=== PATIENT | male | born 1965 | race Caucasian/White ===

== ENCOUNTER → 2017-12-22 13:14 | Emergency (ER) | payer MEDICARE ==
[~2017-12-22 13:14] MED LIST: Labetalol IV* 5 MG/ML 20 ML VIAL IV PUSH ONE
--- NOTE | 2017-12-22 14:02 | ED ---
Hypertension - HPI Summary HPI Summary: This pt is a 52 y/o male presenting to [facility] referred by Dr. Dunlap for hypertension today. Pt reports his PCP had prescribed him 80 mg of Losartan and was doing well. Later he noticed his blood pressure was not controlled so his PCP increased his Losartan dose to 160 mg two weeks ago. Today he went to see Dr. 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 At their office pt was noted to have an elevated blood pressure and sent him to the ED. Pt currently c/ o a slight headache, described as pressure on bilateral temples. Denies nausea, vomiting, chest pain, SOB. 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 Pt states at onset of SC pt was using cocaine, since then he denies cocaine use. Denies tobacco use. He does drink alcohol occasionally and rare use of marijuana (2-3 times per month). - History of Current Complaint Chief Complaint: EDHypertension Stated Complaint: HIGH BP-SENT BY [employer] TECHNICAL ADVISOR Time Seen by Provider: 12/22/17 13:47 Hx Obtained From: Patient Onset/Duration: Started Days Ago, Still Present Timing: Lasting Days Aggravating Factor(s): Nothing Alleviating Factor(s): Nothing Associated Signs & Symptoms: Headaches, Other: - NEGATIVE: nausea, vomiting, chest pain, SOB, fever - Allergies/Home Medications Allergies/Adverse Reactions: Allergies Allergy/AdvReac Type Severity Reaction Status Date / Time No Known Allergies Allergy Verified 12/22/17 13:31 Home Medications: Home Medications Carvedilol TAB* [Coreg TAB*] 25 mg PO BID 12/22/17 [History Confirmed 12/22/17] Dulaglutide (NF) [Trulicity (NF)] 1.5 mg SUBCUT WEEKLY 12/22/17 [History Confirmed 12/22/17] Insulin LISPRO* [HumaLOG*] 0 units SUBCUT DIRECTED 12/22/17 [History Confirmed 12/22/17] L.acidoph,Paracasei, B.lactis [Probiotic] 1 cap PO DAILY 12/22/17 [History Confirmed 12/22/17] Polyethylene Glycol 3350* [Miralax*] 17 gm PO DAILY PRN 12/22/17 [History Confirmed 12/22/17] Ranitidine TAB (NF) [Zantac TAB (NF)] 150 mg PO BID 12/22/17 [History Confirmed 12/22/17] Sertraline* [Zoloft*] 100 mg PO DAILY 12/22/17 [History Confirmed 12/22/17] Valsartan TAB* [Diovan TAB*] 80 mg PO DAILY 12/22/17 [History Confirmed 12/22/17 ] clonazePAM TAB(*) [Klonopin TAB(*)] 0.5 mg PO TID PRN 12/22/17 [History Confirmed 12/22/17] PMH/Surg Hx/FS Hx/Imm Hx Endocrine/Hematology History: Reports: Hx Diabetes Denies: Hx Systemic Lupus Erythematosus Cardiovascular History: Reports: Hx Angina, Hx Coronary Artery Disease, Hx Hypercholesterolemia, Hx Hypertension, Hx Myocardial Infarction Denies: Hx Congestive Heart Failure, Hx Valvular Heart Disease Respiratory History: Denies: Hx Asthma, Hx Chronic Obstructive Pulmonary Disease (COPD) History: Denies: Hx Dialysis, Hx Renal Disease Musculoskeletal History: Denies: Hx Rheumatoid Arthritis - Cancer History Hx Chemotherapy: No Infectious Disease History: No Infectious Disease History: Denies: Traveled Outside the [place] in Last 30 Days - Family History Known Family History: Positive: Cardiac Disease - Mother and Father with MIs, Hypertension - Father, Respiratory Disease - Mother with COPD - Social History Alcohol Use: None Substance Use Type: Reports: Marijuana Smoking Status (MU): Former Smoker Review of Systems Negative: Fever, Chills Cardiovascular: Other - hypertension Negative: Chest Pain Negative: Shortness Of Breath Negative: Vomiting, Nausea Positive: Headache All Other Systems Reviewed And Are Negative: Yes Physical Exam - Summary Physical Exam Summary: VITAL SIGNS: Reviewed. GENERAL: Patient is a well-developed and nourished male who is lying comfortable in the stretcher. Patient is not in any acute respiratory distress. HEAD AND FACE: No signs of trauma. No ecchymosis, hematomas or skull depressions. No sinus tenderness. EYES: PERRLA, EOMI x 2, No injected conjunctiva, no nystagmus. EARS: Hearing grossly intact. Ear canals and tympanic membranes are within normal limits. MOUTH: Oropharynx within normal limits. NECK: Supple, trachea is midline, no adenopathy, no JVD, no carotid bruit, no c- spine tenderness, neck with full ROM. CHEST: Symmetric, no tenderness at palpation LUNGS: Clear to auscultation bilaterally. No wheezing or crackles. CVS: Regular rate and rhythm, S1 and S2 present, no murmurs or gallops appreciated. ABDOMEN: Soft, non-tender. No signs of distention. No rebound, no guarding, and no masses palpated. Bowel sounds are normal. EXTREMITIES: FROM in all major joints, no edema, no cyanosis or clubbing. NEURO: Alert and oriented x 3. No acute neurological deficits. Speech is normal and follows commands. SKIN: Dry and warm Triage Information Reviewed: Yes Vital Signs On Initial Exam: Initial Vitals Temp Pulse Resp BP Pulse Ox 97.8 F 91 18 201/120 98 12/22/17 13:28 12/22/17 13:28 12/22/17 13:28 12/22/17 13:28 12/22/17 13:28 Vital Signs Reviewed: Yes Diagnostics - Vital Signs Vital Signs Temp Pulse Resp BP Pulse Ox 12/22/17 13:28 97.8 F 91 18 201/120 98 - Laboratory Result Diagrams: 12/22/17 14:07 12/22/17 14:08 Lab Statement: Any lab studies that have been ordered have been reviewed, and results considered in the medical decision making process. - Radiology Chest XR Xray Interpretation: No Acute Changes - IMPRESSION: No active cardiopulmonary disease is noted. Dr. Campbell has reviewed this report. Radiology Interpretation Completed By: Radiologist - EKG 14:02 Cardiac Rate: NL - at 89 bpm EKG Rhythm: Sinus Rhythm EKG Interpretation: No ST elevations. Re-Evaluation - Re-Evaluation First Eval Re-Evaluation Time: 17:48 Comment: I discussed the lab and XR results with the pt. He will be discharged home. Hypertension Course/Dx - Course Assessment/Plan: This pt is a 52 y/o male presenting to [facility] referred by Dr. Dunlap for hypertension today. Pt reports his PCP had prescribed him 80 mg of Losartan and was doing well. Later he noticed his blood pressure was not controlled so his PCP increased his Losartan dose to 160 mg two weeks ago. Today he went to see Dr. 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 At their office pt was noted to have an elevated blood pressure and sent him to the ED. Pt currently c/o a slight headache, described as pressure on bilateral temples. Denies nausea, vomiting, chest pain, SOB. PMHx includes SC (about 10 years ago) with 3 cardiac stents and 1 stent in renal artery. Pt states at onset of SC pt was using cocaine, since then he denies cocaine use. Denies tobacco use. He does drink alcohol occasionally and rare use of marijuana (2-3 times per month). Forget to take all medications as indicated. Blood work without any significant abnormality except for glucose of 265. Chest x-ray impression: No active cardiopulmonary disease. Since the patient is hypertensive the patient was given labetalol 20 mg IV. Patient was given a second dose of labetalol and right now the blood pressure is 131/98. The patient is feeling better and he has no other symptoms, therefore the patient will be discharged home with follow-up from primary care physician. Patient is hemodynamically stable, alert and oriented 3. Patient will follow-up with primary care physician or letter stamping machine operator for better control of the blood pressure. He was also advised to adhere and take medications as indicated. The patient understands and agrees. - Diagnoses Provider Diagnoses: Uncontrolled hypertension Discharge - Sign-Out/Discharge Documenting (check all that apply): Patient Departure - discharge home - Discharge Plan Condition: Stable Disposition: HOME Patient Education Materials: Hypertension (ED) Referrals: Charlotte Ordonez MD [Primary Care Provider] - Additional Instructions: FOLLOW UP WITH YOUR PRIMARY CARE PROVIDER WITHIN ONE WEEK FOR HIGH BLOOD PRESSURE TODAY. RETURN TO THE ED FOR ANY NEW OR WORSENING SYMPTOMS. - Billing Disposition and Condition Condition: STABLE Disposition: Home - Attestation Statements Document Initiated by Scribe: Yes Documenting Scribe: Shruti Amezquita Provider For Whom Mayuri is Documenting (Include Credential): Perry Campbell MD Scribe Attestation: Shruti Bateman scribed for Perry Campbell MD on 12/23/17 at 0841. Scribe Documentation Reviewed: Yes Provider Attestation: The documentation as recorded by the Shruti paez accurately reflects the service I personally performed and the decisions made by me, Perry Campbell MD
--- OUTSIDE RECORDS SUMMARY | 2017-12-22 14:05 | XMS REPORT ---
:1965 External Reference #:[id number] Author Organization [employer] Address [address] [facility] [place] [address] Phone [phone] Care Team Providers Name Role Phone Charlotte Ordonez MD Primary Care Physician Unavailable Payers Type Date Identification Numbers Payment Provider Subscriber Medicare Primary Effective: Policy Number: Medicare Aaron Cox 2010 [id number] PayID: [id number] [facility] [address] [place] [id number] Problems Date Description Provider Status Onset: 05/20/2016 Essential hypertension Annalise Ramirez M.D. Onset: 07/06/2011 Electrocardiogram abnormal Annalise Ramirez M.D. Onset: 07/06/2011 Hyperlipidemia Annalise Ramirez M.D. Onset: 07/06/2011 Type 2 diabetes mellitus Annalise Ramirez M.D. Onset: 07/06/2011 Patient post percutaneous Edward Dunlap Active transluminal coronary angioplasty M.DCarli Onset: 07/06/2011 Old myocardial infarction Annalise Ramirez M.D. Onset: 07/06/2011 Benign essential hypertension Annalise Ramirez M.D. Onset: 07/06/2011 Coronary arteriosclerosis Annalise Ramirez M.D. Family History Date Family Member(s) Problem(s) Comments Father due to NE () - age 56 yrs Father due to Hypertension () Mother Chronic Obstructive Pulmonary Disease (COPD) Mother due to NE () - in her 60's Mother Coronary Artery Disease (CAD) Mother NE Siblings 1 1 sister - no known CAD several half siblings - CAD, HTN, CABG Paternal Grandfather due to NE () - age 50's Paternal Grandmother due to Cancer () Maternal Grandmother due to NE () - age 83yrs DM Paternal Uncles NE 2 uncles with NE age 50's Social History Type Date Description Comments Marital Status Single Lives With Girlfriend Occupation Disabled Cigarette Use Quit 20 Years Ago ETOH Use Occasionally consumes alcohol 3-4 per month Recreational Drug Use Denies Drug Use Smoking Patient is a former smoker Daily Caffeine Consumes on average 8oz of soda per day Exercise Type/Frequency Exercises sporadically Currently Active Patient is currently sexually active Allergies, Adverse Reactions, Alerts Date Description Reaction Status Severity Comments 07/06/2011 NKDA active 06/11/2009 NKDA inactive Medications Medication Date Status Form Strength Qnty SIG Indications Ordering Provider Valsartan 12/01/ Active Tablets 160mg 30tabs one po qd Deantaevita Dunlap M.D. Carvedilol 06/11/ Active Tablets 25mg 60tabs 1 po bid Mery 2009 Charlotte M.D. Humalog / Active Solution 100Unit/ML 1vial via Unknown 0000 insulin pump Diltiazem CD / Active Caps ER 180mg 1 by Unknown 0000 24HR mouth every day Ibuprofen / Active Kit 800mg 3x a day Unknown Comfort Pac 0000 as needed Trulicity / Active Solution 1.5mg/0.5M inject sc Unknown 0000 Pen-Inject L weekly Clonazepam / Active Tablets 1mg 1/2 tab Unknown 0000 by mouth tid Polyethylene / Active Packet 3350NF as needed Unknown Glycol 3350 0000 Probiotic-10 / Active Capsules 1 cap by Unknown 0000 mouth daily Sertraline HCL / Active Tablets 100mg 1 by Unknown 0000 mouth every day Ranitidine HCL / Active Tablets 150mg take one Unknown 0000 tablet by mouth daily Escitalopram 07/06/ Hx Tablets 30mg 90tabs 1 po qd Qutaybeh Oxalate 2013 - SCarli 05/15/ Mike Dunlap M.D. Viagra 08/13/ Hx Tablets 50mg 30tabs 1 tab po 302.72 Mery 2009 - prn , Radomir, M.D. 2012 Norvasc 08/12/ Hx Tablets 5mg 30tabs 1 po qd Qutaybeh 2009 S. 05/15/ Germán, 2016 M.D. Clarinex 08/03/ Hx Tablets 5mg 30tabs 1 po qd Mery 2009 - , Radomir, .D. 2012 Metformin ER 07/13/ Hx 500mg 90unit 1 po tid 250.00 Mery 2009 s , Radomir, .D. 2010 Actos 07/13/ Hx Tablets 30mg 90tabs 1 po qd 250.00 Mery 2009 - , Radomir, .D. 2013 Crestor 07/13/ Hx Tablets 20mg 30tabs 1 po qd 250.00 Mery 2009 - , Radomir, .D. 2016 Lisinopril 06/11/ Hx Tablets 40mg 30tabs 1 po qd Mery 2009 , Radomir, .D. 2013 HCTZ 06/11/ Hx 25mg. 30unit 1 po qd Mery 2009 s , Radomir, .D. 2013 Glipizide 06/11/ Hx Tablets 10mg 1 po bid Mery 2009 - , Radomir, .D. 2010 Metformin HCL 06/11/ Hx Tablets 1000mg 60tabs 1 po bid Mery 2009 - , Radomir, .D. 2009 Sertraline HCL 06/11/ Hx Tablets 100mg 30tabs 2 PO qd Hectoranoaleksandr 2009 - , Radomir, M.D. 2010 Buspirone HCL 06/11/ Hx Tablets 30mg 1 PO bid Mery 2009 - , Radomir, .D. 2010 Gabapentin 06/11/ Hx Tablets 600mg 90tabs 1 po qd Mery 2009 - , Radomir, M.D. 2011 Asa 06/11/ Hx 81mg 100uni 1 po qd Mery 2009 - ts , Radomir, 06/11/ M.D. 2010 Nitroquick 06/11/ Hx Tablets 0.4mg 30tabs 1 s/l prn Qutaybeh 2009 - Sub chest S. 05/15/ pain, q 5 Maghaydah, 2017 min. up M.D. to 3 tabs [id number] 06/11/ Hx Capsules 500-50mg 180cap 1 po bid 250.00 Mery 2009 - s , Gavinoombuddy, 07/13/ M.D. 2009 723.1 414.01 Veramyst - Hx Suspension 27.5mcg/[place] 2 sprays Unknown 08/12/2009 each nostril bid Metformin HCL - Hx Tablets 500mg 1 po daily 25 Unknown 11/30/2017 0. 00 Lexapro - Hx Tablets 20mg 30 1 1/2 po qd Unknown 07/06/2012 ta bs Januvia - Hx Tablets 100mg 90 1 po qd Unknown 07/06/2012 ta bs Salsalate - Hx Tablets 500mg 54 1 po four Unknown 07/06/2012 0t times a day` ab s Bupropion HCL XL - Hx Tablets ER 300mg 90 1 po qd Unknown 05/15/2016 24HR ta bs Perforomist - Hx Nebulizer 20mcg/2ML 18 1 treatment Unknown 07/06/2012 0u bid ni ts Budesonide - Hx Suspension 0.25mg/2ML 18 bid via Unknown 07/06/2012 0u nebulizer ni ts Cyclobenzaprine - Hx Tablets 10mg 30 one po tid Unknown HCL 07/06/2012 ta prn spasm bs Invega - Hx Tablets ER 3mg Daily Unknown 07/06/2012 24HR Lisinopril/Hydroch - Hx Tablets 20-25mg 1 po qd Unknown lorothiazide 05/15/2016 Abilify - Hx Tablets 10mg 1 po qd Unknown 05/15/2016 Spiriva Handihaler - Hx Capsules 18mcg 1m 1 inhalation Unknown 05/15/2016 on po qam th Dulera - Hx Aerosol 100-5mcg/Act 1m 2 puff bid Unknown 05/15/2016 on Proair HFA - Hx Aerosol 108(90Base) 1u 2 puffs po Unknown 05/15/2016 mcg/Act ni q4h prn ts Levemir - Hx Solution 100Unit/ML 6p 45 units am, Unknown 05/15/2016 en 60 units pm s Simvastatin - Hx Tablets 10mg take 1 Unknown 11/30/2017 tablet by mouth daily Valsartan - Hx Tablets 80mg 1 by mouth Unknown 12/01/2017 every day Vital Signs Date Vital Result Comment 12/01/2017 Height 72 inches 6'0" Weight 263.00 lb w/ shoes Heart Rate 82 /min BP Systolic Sitting 170 mmHg Lue Larg Cuff BP Diastolic Sitting 116 mmHg Lue Larg Cuff BP Systolic Standing 185 mmHg Home Unit BP Diastolic Standing 120 mmHg Home Unit BMI (Body Mass Index) 35.7 kg/m2 Ejection Fraction 40-45% echo 06/10/16 05/20/2016 Height 72 inches 6'0" Weight 265.50 lb with shoes Heart Rate 88 /min BP Systolic Sitting 186 mmHg LA reg cuff BP Diastolic Sitting 110 mmHg LA reg cuff BMI (Body Mass Index) 36.0 kg/m2 Ejection Fraction 40% - 45% echo 06/27/12 07/06/2012 Height 72 inches 6'0" Weight 251.00 lb Heart Rate 68 /min BP Systolic Sitting 124 mmHg BP Diastolic Sitting 90 mmHg Respiratory Rate 16 /min BMI (Body Mass Index) 34.0 kg/m2 07/06/2011 Height 72 inches 6'0" Weight 278.00 lb Heart Rate 77 /min BP Systolic 148 mmHg BP Diastolic 96 mmHg BMI (Body Mass Index) 37.7 kg/m2 06/11/2010 Weight 271.00 lb Heart Rate 80 /min BP Systolic Sitting 136 mmHg BP Diastolic Sitting 72 mmHg 10/22/2009 Weight 259.00 lb Heart Rate 65 /min BP Systolic Sitting 100 mmHg BP Diastolic Sitting 78 mmHg BP Systolic Standing 110 mmHg BP Diastolic Standing 78 mmHg Respiratory Rate 16 /min 08/13/2009 Weight 259.00 lb Heart Rate 80 /min BP Systolic 140 mmHg BP Diastolic 100 mmHg 08/12/2009 Height 73 inches 6'1" Weight 260.00 lb Heart Rate 72 /min BP Systolic 150 mmHg BP Diastolic 100 mmHg Respiratory Rate 18 /min BMI (Body Mass Index) 34.3 kg/m2 07/13/2009 Weight 263.00 lb Heart Rate 64 /min BP Systolic Sitting 122 mmHg BP Diastolic Sitting 88 mmHg 06/11/2009 Height 73 inches 6'1" Weight 265.75 lb Heart Rate 78 /min BP Systolic Sitting 120 mmHg BP Diastolic Sitting 84 mmHg BMI (Body Mass Index) 35.1 kg/m2 Results Test Date Test Result H/L Range Note Laboratory test finding 07/13/2009 Oly Savage JEN (SEE NOTE) 1, 2 Laboratory test finding 06/22/2009 C Reactive Protein High 6.1 mg/L < 7.48 3 Sensit Urine Microalbumin 06/22/2009 Microalbumin (MG/L) 123.0 mg/L Random Urine Creatinine 113.55 mg/dL Felipe Alb/Creatinine Ratio 108.3 UG/MG High Less Than 30 4 C Peptide 06/22/2009 C-Peptide ng/mL 7.3 ng/mL 0.9-4.3 C-Peptide pmol/L 2433 pmol/L 297-1419 5 Laboratory test finding 06/22/2009 Homocysteine 11 umol/L () 6 Lipid Profile (Trig/Chol/HDL) 06/22/2009 Triglyceride 220 mg/dL High 40- 200 Cholesterol 265 mg/dL High Less Than 200 7 High Density Lipoprotein 33 mg/dL Low 40-60 8 Cholesterol/HDL Ratio 8.03 AVERAGE High 1-4.97 Low Density Lipoprotein 188 mg/dL High Less Than 100 9 Laboratory test finding 06/22/2009 C Reactive Protein 0.7 mg/dL High Less Than 0.5 Hemoglobin A1c 8.4 % High Less Than 6.0 10 Lactic Acid 1.7 mmol/L High 0.5-1.6 Comp Metabolic Panel 06/22/2009 Sodium 133 mmol/L Low 135-145 Potassium 4.5 mmol/L 3.5-5.0 Chloride 104 mmol/L 101-111 Co2 (Carbon Dioxide) 22.0 mmol/L 22-32 Anion Gap 7.0 mmol/L 2-11 11 Glucose 298 mg/dL High 70-100 12 BUN 20 mg/dL 6-24 Creatinine 1.05 mg/dL 0.50-1.40 One Over Creatinine 0.90 BUN/Creatinine Ratio 19.0 8-20 Calcium 9.6 mg/dL 8.1-9.9 13 Total Protein 7.8 GM/DL 6.2-8.1 Albumin 4.4 GM/DL 3.6-5.4 Globulin 3.4 GM/DL 2-4 Albumin/Globulin Ratio 1.3 1-3 Bilirubin Total 0.5 mg/dL 0.4-1.5 14 Alkaline Phosphatase 91 U/L 39-117 Alt (SGPT) 61 U/L 17-63 Ast (Sgot) 49 U/L High 12-42 eGFR Non- 82.7 > 60 eGFR 100.1 > 60 15 CBC With Electronic Diff 06/22/2009 White Blood Count 5.5 CUMM 4.8-10.8 Red Cell Count 4.95 CUMM 4.6-6.2 Hemoglobin 15.0 g/dL 14.0-18.0 Hematocrit 44 % 42-52 Mean Corpuscular Volume 89 um3 80-94 Mean Corpuscular Hemoglob 30 pg 27-31 Mean Corpuscular HGB Cone 34 g/dL 32-36 Redcell Distribution WDTH 14 % 10.5-15 Platelet Count 173 CUMM 150-450 Mean Platelet Volume 8.4 um3 7.4-10.4 Gran % 66.3 % 38-83 Lymph % 26.9 % 25-47 Mononuclear % 4.5 % 1-9 Eosinophil % 2.0 % 0-6 Basophil % 0.3 % 0-2 Abs Lymphs 1.5 1.0-4.8 Abs Mononuclear 0.2 0-0.8 Absolute Neutrophil Count 3.6 1.5-7.7 Abs Eosinophils 0.1 0-0.6 Abs Basophils 0 0-0.2 1 1132. 2 TEST RESULT RETURNED FROM REFERENCE LABORATORY AND HARDCOPY SENT TO PHYSICIAN(S) OFFICE. 3 Less Than 1.0......Low Risk of Cardiovascular Disease 1.0-3.0............Medium Risk (<2 Fold Increase) Greater Than 3.0...High Risk (Approximately 2-Fold Increase) The above guidelines are referenced in "Markers of Inflammation and Cardiovascular Disease: Application to Clinical and Public Health Practice." A Statement for Health Professionals from the Centers for Disease Control and Prevention and the [place] [employer]. (Reference: Circulation 2003 107:499-511) SERUM LEVELS OF HIGH SENSITIVITY C-REACTIVE PROTEIN MEASURED BY THE KJ SHAHIDA LXi 725 SYSTEM SHOULD NOT BE INTERPRETTED ABSOLUTE EVIDENCE OF THE PRESENCE OR ABSENCE OF DISEASE. A HIGH SENSITIVITY CRP VALUE SHOULD BE USED IN CONJUNCTION WITH OTHER PERTINENT CLINICAL AND DIAGNOSTIC INFORMATION. 4 MICROALBUMINURIA IN A RANDOM SAMPLE IS DEFINED : MICROALBUMIN/CREATININE RATIO OF 30-299 ug/mg. . 5 Test Performed by: [facility] Dpt of Lab Med and Pathology [address] [place] [address] Illuminating Engineer: Michael Garnett III, M.D. 6 -- REFERENCE VALUE -- <=13 (Fasting) Test Performed by: [facility] Dpt of Lab Med and Pathology [address] [place] [address] Illuminating Engineer: Michael Garnett III, M.D. 7 CHOLESTEROL INTERPRETATION: Desirable: Less than 200 MG/DL Borderline-High Risk: 200-239 MG/DL High-Risk: 240 MG/DL and over 8 HDL INTERPRETATION: Undesirable: High Risk: Less than 40 MG/DL Desirable: Low Risk: Greater than 60 MG/DL 9 LDL INTERPRETATION: Low Risk Optimal Level: LDL Less than 100 MG/DL Near or Above Optimal: LDL 100-129 MG/DL Borderline High Risk: LDL 130-159 MG/DL High Risk: LDL 160-189 MG/DL Very High Risk: LDL Greater than 189 MG/DL 10 THERAPEUTIC TARGET FOR THE TREATMENT OF DIABETES MELLITUS PATIENTS IS <7% HBA1C, AND IN SELECTIVE PATIENTS <6.0%. PLEASE REFER TO [place] DIAB[employer] ASSOCIATION DIABETIC CARE GUIDELINES FOR FURTHER INFORMATION. 11 Anion gap measurement may be of limited value in the presence of any alkalosis, especially in a combined acid base disorder. . 12 Note change in reference range as of 11/01/07. The change was based on recommendations from the [place] [employer]. 13 Please note change in reference range effective 07 . 14 A metabolite of Naproxen, O-desmethylnaproxen, has been shown to interfere with the [place] method for measuring total bilirubin. Samples from patients who have taken Naproxen have shown spurious elevation in total bilirubin levels. 15 Because ethnic data is not always readily available, this report includes an eGFR for both -Americans and non- Americans. The National Kidney Disease Education Program (NKDEP) does not endorse the use of the MDRD equation for patients that are not between the ages of 18 and 70, are , have extremes of body size, muscle mass, or nutritional status, or are non- or non-. According to the National Kidney Foundation, irrespective of diagnosis, the stage of the disease is based on the level of kidney function: Stage Description GFR(mL/min/1.73 m(2)) 1 Kidney damage with normal or decreased GFR 90 2 Kidney damage with mild decrease in GFR 60-89 3 Moderate decrease in GFR 30-59 4 Severe decrease in GFR 15-29 5 Kidney failure <15 (or dialysis) Procedures Date CPT Code Description Status 12/01/2017 02688 EKG Tracing & Interpretation Completed 06/15/2016 83708 Treadmill Interp/Report Only Completed 06/15/2016 99143 Stress Test Supervsn W/Out I/R Completed 06/10/2016 89890 ECHO Transthoracic, Real-Time 2D With Doppler And Color Completed Flow 05/20/2016 79929 EKG Tracing & Interpretation Completed 07/06/2012 77238 EKG Tracing & Interpretation Completed 06/26/2012 78119 ECHO Transthoracic, Real-Time 2D With Doppler And Color Completed Flow 07/06/2011 46992 EKG Tracing & Interpretation Completed 02/10/2011 82008 Stress Test Supervsn W/Out I/R Completed 02/10/2011 35753 Treadmill Interp/Report Only Completed 02/01/2011 42611 ECHO Transthoracic, Real-Time 2D With Doppler And Color Completed Flow 06/11/2010 44623 EKG Tracing & Interpretation Completed 12/14/2009 67189 Treadmill Interp/Report Only Completed 12/14/2009 76993 Stress Test Supervsn W/Out I/R Completed 10/22/2009 25839 EKG Tracing & Interpretation Completed 10/12/2009 52082 ECHO Transthoracic, Real-Time 2D With Doppler And Color Completed Flow 08/12/2009 19598 EKG Tracing & Interpretation Completed 06/11/2009 29801 EKG Tracing & Interpretation Completed Encounters Type Date Location Provider CPT E/M Dx Office Visit 05/20/2016 9:00a [facility] Edward Nassar [address]644 I25.10 Christa Dunlap I10 I25.2 Z98.61 E78.4 R06.02 I44.4 Office Visit 07/06/2012 10:40a [facility] Deantayb S. Aaron, [address]004 414.01 M.D. 401.1 412 V45.82 250.00 272.4 Office Visit 07/06/2011 10:00a [facility] Deantayb S. Sevenyd, [address]404 414.01 M.D. 401.1 412 V45.82 250.00 272.4 794.31 425.9 Office Visit 02/10/2011 2:51p [facility] Deantayb S. Aaron, [address]005 794.31 M.D. 412 414.01 401.1 786.50 786.05 V45.82 Office Visit 06/11/2010 3:00p [facility] Qutayb S. Aaron, 54480 414.01 M.D. 412 250.00 272.4 V45.82 Office Visit 10/22/2009 2:20p [facility], [address] 401.1 M.D. 414.01 412 Office Visit 08/26/2009 9:15a [facility] [address] 847.0 Patient Transport Orderly M.D. 723.1 Office Visit 08/13/2009 1:00p DO Not Use Patient Transport Orderly AT [facility], [address] 302.72 [place] M.D. 401.1 250.00 272.4 414.01 412 721.0 723.1 Office Visit 08/12/2009 9[facility]40a [facility], [address] 401.1 M.D. 250.00 272.4 414.01 412 V45.82 Office Visit 07/23/2009 1:00p [facility], [address] 721.0 Patient Transport Orderly M.D. 723.1 Office Visit 07/13/2009 8:40a DO Not Use Patient Transport Orderly AT [facility], [address] 250.00 [place] M.D. 401.1 272.4 414.01 412 309.0 477.9 723.1 Office Visit 06/11/2009 9:00a DO Not Use Patient Transport Orderly AT 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 at [facility]12/08/2017 9:00 am - Nurse Visit cc at [facility]12/22/2017 9 :00 am - [place] ECHO Schedule at [facility]12/06/2017 9:30 am - Fransisco Adame MD at [facility] Aavypmptnea42/21/2018 - Edward Dunlap M.D.I25.10 [facility] [place] coronary artery w/o ang pctrsFollow up:one yr ov with meI10 Essential (primary) hypertensionFollow up:one week BP check qclckD95.2 Old myocardial havppzxvyoV93.61 Coronary angioplasty qjbfeuO43.4 Other utxhfeggtyxrtdR22.9 Cardiomyopathy, unspecifiedFollow up:one month ASSISTANT PROFESSOR OF SPANISH ov to discuss echo and HTNI71.9 Aortic aneurysm of unspecified site, without ruptureNew Orders:AcbcwkglzetnogW15.33 Obstructive sleep apnea (adult) ( pediatric)
[2017-12-22 14:20] LABS: ABS Basophils 0.1 10^3/ul (0-0.2); ABS Eosinophils 0.1 10^3/ul (0-0.6); ABS Lymphocytes 1.8 10^3/ul (1.0-4.8); ABS Monocytes 0.3 10^3/ul (0-0.8); ABS Neutrophils 3.2 10^3/ul (1.5-7.7); ABS Nucleated RBC 0 10^3/ul; Hematocrit 45 % (42-52); Hemoglobin 15.8 g/dl (14.0-18.0); Lymphocyte % 32.5 % (25-47); Mean Corpuscular HGB Conc 35 g/dl (31-36); Mean Corpuscular Hemoglobin 31 pg (27-31); Mean Corpuscular Volume 90 fL (80-94); Mean Platelet Volume 8.5 um3 (7.4-10.4); Nucleated Red Blood Cells % 0.1; Platelet Count 156 10^3/ul (150-450); Red Blood Count 5.07 10^6/ul (4.00-5.40); Red Cell Distribution Width 14 % (10.5-15); White Blood Count 5.5 10^3/ul (3.5-10.8)
[2017-12-22 14:39] LABS: EGFR Non-African American 92.9 (>60)
--- NOTE | 2017-12-22 15:18 | RAD ---
Indication: Hypertension. 2 views of the chest including dual energy PA views demonstrate no mediastinal shift. Heart is of normal size and configuration. Lung ann demonstrate no pleural fluid, pneumonia or pneumothorax. When compared to previous exam of June 16, 2009 no significant change is noted. IMPRESSION: No active cardiopulmonary disease is noted.
[2017-12-22 18:37] VITALS: BP 142/100
== END | disposition home or self-care (01) ==
LOC: ED 13:14
DX: I10 Essential (primary) hypertension (principal); I25.2 Old myocardial infarction; E11.9 Type 2 diabetes mellitus without complications; Z87.891 Personal history of nicotine dependence
CPT/HCPCS: 36415; 71046; 80053; 84443; 85025; 93005; 96374; 96375; 99283

== ENCOUNTER 2018-07-11 07:07 | Emergency (ER) | payer MEDICARE ==
--- NOTE | 2018-07-11 07:33 | UC ---
UC General HPI - HPI Summary HPI Summary: Patient has poor dentition at baseline with several broken teeth. HE anticipates most if not all of his teeth will be pulled at some point. About 3- 4 days ago he noted pain in upper right area of teeth. The soonest the dentist could get in to see him was 5/6, which he assumes they will pull it. NO fevers. No nausea. Tolerating PO. Pain is bearable. Sugars are at there baseline high which is about 250. He takes nearly 200 units/day. Meds; Reviewed - History of Current Complaint Chief Complaint: UCDentalProblem Stated Complaint: DENTAL Time Seen by Provider: 07/11/18 07:22 Pain Intensity: 4 - Allergy/Home Medications Allergies/Adverse Reactions: Allergies Allergy/AdvReac Type Severity Reaction Status Date / Time No Known Allergies Allergy Verified 07/11/18 07:17 PMH/Surg Hx/FS Hx/Imm Hx Endocrine History: Diabetes Cardiovascular History: Hypertension GI/ History: Gastroesophageal Reflux - Surgical History Surgical History: Yes Surgery Procedure, Year, and Place: Colonoscopy, Cardiac Cath - Family History Known Family History: Positive: Cardiac Disease - Mother and Father with MIs, Hypertension - Father, Respiratory Disease - Mother with COPD - Social History Alcohol Use: None Alcohol Amount: 1x per month Substance Use Type: None Substance Use Comment - Amount & Last Used: the 2-3x per month Smoking Status (MU): Former Smoker When Did the Patient Quit Smoking/Using Tobacco: Review of Systems All Other Systems Reviewed And Are Negative: Yes Skin: Positive: Negative Physical Exam Triage Information Reviewed: Yes Appearance: Well-Appearing Vital Signs: Initial Vital Signs Temp 97.6 F 07/11/18 07:15 Pulse 79 07/11/18 07:15 Resp 18 07/11/18 07:15 BP 151/93 07/11/18 07:15 Pulse Ox 100 07/11/18 07:15 ENT: Positive: Normal ENT inspection Dental: Positive: Other: - poor dentition with several broken teeth - adentulous on top left. Top right - surrouding upper mid molar - mildly edematous and erythematous, pain with palpation. No drainage Neck: Positive: Supple, Nontender Respiratory: Positive: Normal breath sounds Cardiovascular: Positive: RRR, Other: - soft 2/6 systolic murmur Course/Dx - Course Course Of Treatment: This is a 52 yr old with PMHx of HTN and poorly controlled DM on insulin pump who presents with right upper molar dental pain Assessment Suspect dental abscess in setting of poor dentition and poorly controlled diabetes Plan Start Amoxicillin as prescribed Continue tylenol and/or ibuprofen as needed for pain Continue with soft diet Recommend close follow of your blood sugars Follow up with Dentist as scheduled on 07/16/18 If pain or symptoms worsen including but not limited to, fever, nausea and worsening pain, try to get into dentist sooner, otherwise return to Urgent care Recommend taking Blood pressure medication and close follow up of elevated blood pressure. - Diagnoses Provider Diagnosis: Dental abscess Discharge - Sign-Out/Discharge Documenting (check all that apply): Patient Departure All imaging exams completed and their final reports reviewed: No Studies - Discharge Plan Condition: Good Disposition: HOME Prescriptions: Amoxicillin PO (*) [Amoxicillin 500 MG CAP*] 500 mg PO TID #21 cap Patient Education Materials: Dental Abscess (ED), Toothache (ED) Referrals: Charlotte Ordonez MD [Primary Care Provider] - Additional Instructions: Start Amoxicillin as prescribed Continue tylenol and/or ibuprofen as needed for pain Continue with soft diet Recommend close follow of your blood sugars Follow up with Dentist as scheduled on 07/16/18 If pain or symptoms worsen including but not limited to, fever, nausea and worsening pain, try to get into dentist sooner, otherwise return to Urgent care Recommend taking Blood pressure medication and close follow up of elevated blood pressure. - Billing Disposition and Condition Condition: GOOD Disposition: Home
[2018-07-11 07:42] VITALS: BP 117/81
== END 2018-07-11 07:43 | disposition home or self-care (01) ==
LOC: UCCORT 07:07
DX: K04.7 Periapical abscess without sinus (principal); I10 Essential (primary) hypertension; K21.9 Gastro-esophageal reflux disease without esophagitis; E11.9 Type 2 diabetes mellitus without complications; Z87.891 Personal history of nicotine dependence
CPT/HCPCS: 99212; G0463